=== PATIENT | female | born 1980 | race Caucasian/White ===

== ENCOUNTER 2019-07-25 14:35 | Emergency (ER) | payer OTHER ==
[~2019-07-25] VITALS: Ht 160 cm; Wt 65.8 kg
[2019-07-25 15:04] VITALS: BP 132/86
--- NOTE | 2019-07-25 15:06 | NUR ---
FUAD REAGAN. SENT TO LOB, AWAITING BED IN ED. VSS.
[2019-07-25 15:40] LABS: BASOPHILS # (AUTO) 0.1 K/uL (0.00-0.22); BASOPHILS % (AUTO) 0.9 % (0.0-2.0); EOSINOPHILS # (AUTO) 0.2 K/uL (0-0.4); EOSINOPHILS % (AUTO) 3.1 % (0.0-4.0); HEMATOCRIT 40.1 % (36-48); HEMOGLOBIN 13.5 g/dL (12.0-16.0); LYMPHOCYTES # (AUTO) 2.4 K/uL (2.5-16.5); LYMPHOCYTES % (AUTO) 32.1 % (20.5-51.1); MEAN CORPUSCULAR HEMOGLOBIN 31 pg (27-31); MEAN CORPUSCULAR HGB CONC 34 g/dL (33-37); MEAN CORPUSCULAR VOLUME 92.8 fL (80-94); MONOCYTES # (AUTO) 0.7 K/uL (0.8-1.0); MONOCYTES % (AUTO) 9.7 % (1.7-9.3); NEUTROPHILS % (AUTO) 54.2 % (42.2-75.2); PLATELET COUNT (AUTO) 323 K/uL (140-450); RED BLOOD CELL COUNT(AUTO) 4.32 MIL/uL (4.20-5.40); RED CELL DISTRIBUTION WIDTH 12.8 % (11.6-13.7); WHITE BLOOD COUNT (AUTO) 7.4 K/uL (4.8-10.8)
--- NOTE | 2019-07-25 16:24 | NUR ---
PT TAKEN TO BED 11.
--- NOTE | 2019-07-25 16:35 | NUR ---
39/F C/O VAG BLEEDING AFTER URINATION X 2 DAYS. STATES THE URINE IS CLEAR BUT SHE SEES "MANY DROPS OF BLOOD" FROM VAGINA AFTER URINATION. ALSO STATES 03/03 RLQ CONSTANT PAIN X 2 DAYS. LMP 07/06/19. PT STATES CHRONIC CONSTIPATION WITH CHRONIC LLQ PAIN. DENIES N/V/FEVER. BEDRAILS UP X1; ERMD TO EVALUATE.
[2019-07-25 16:59] LABS: APPEARANCE,URINE CLEAR (CLEAR); BILIRUBIN,URINE NEGATIVE (NEGATIVE); BLOOD, URINE 1+ (NEGATIVE); COLOR,URINE YELLOW (YELLOW); LEUKOCYTE ESTERASE ,URINE NEGATIVE (NEGATIVE); NITRITE, URINE NEGATIVE (NEGATIVE); UGLUCOSE NEGATIVE (NEGATIVE)
--- NOTE | 2019-07-25 17:50 | NUR ---
PT RESTING IN BED ON CELL PHONE. VSS. WILL CONTINUE TO MONITOR.
[2019-07-25 17:53] LABS: WBC,URINE 0-5 /HPF (0-5)
[2019-07-25 18:12] LABS: ALBUMIN 3.7 g/dL (3.4-5.0); ANION GAP 12.8 (8-16); CARBON DIOXIDE 26.2 mmol/L (21-32); CREATININE 0.9 mg/dL (0.6-1.3); TOTAL BILIRUBIN 0.7 mg/dL (0.0-1.0)
--- NOTE | 2019-07-25 18:40 | NUR ---
DR CURRIE SPEAKING WITH PT AT BEDSIDE.
[2019-07-25 18:53] VITALS: BP 116/72
--- NOTE | 2019-07-25 18:53 | NUR ---
Patient discharged with v/s stable. Written and verbal after care instructions given and explained. Patient verbalized understanding. Ambulatory with steady gait. All questions addressed prior to discharge. Advised to follow up with PMD.
== END 2019-07-25 18:53 | disposition home or self-care (01) ==
LOC: MED 14:35
DX: N93.9 Abnormal uterine and vaginal bleeding, unspecified (principal)
CPT/HCPCS: 36415; 76856; 80053; 81001; 81025; 84702; 85025; 86900; 86901; 93976; 99284; Q0092